=== PATIENT | male | born 1965 | race Native Hawaiian/Other Pacific Islander ===

== ENCOUNTER 2016-05-27 10:38 | Outpatient (CLI) | payer OTHER ==
[~2016-05-27 10:38] MED LIST: AMOX875T8 PO; ANTIPYRINE/BENZOCAIN OTIC; ASA LOW DOSE81 MG PO; BACLOFEN10 MG PO; BENADRYL25 M1 OR; BENZ100C8 PO; BENZONATATE200 MG PO; BINOSTO70 MG PO; CELLCEPT500 MG OR; CETI10TA PO; CIPRO500 MG PO; DIPH25CA90 PO; DOCU100C10 PO; FLUC200T PO; FLUTICASONE50 MCG; LATANOPROST0.005 % XX; LEVO500T PO; LIPITOR10 MG PO; MAG OXIDE400 M2 OR; MELOXICAM7.5 MG OR; MULTI-VIT PO; OMEPRAZOLE20 M1 PO; PRED10TA27 PO; PRED5TAB3 PO; PROGRAF0.5 MG OR; PROGRAF1 MG; TAMSULOSIN0.4 MG PO; TRAM50TA PO; VITAMIN C TR1000 MG PO; VITAMIN D400 UNIT OR; XALATAN0.005 % OPTH; XOPENEX1.25 MG/3 IN
[2016-05-27 12:15] LABS: PLATELET COUNT 244 K/uL (142-355); POTASSIUM 5.6 mmol/L (3.6-5.2); SODIUM 135 mmol/L (136-145)
[2016-06-24] MEDS ORDERED: TIZA4TAB5 PO (12:57)
[2016-06-24] MEDS ORDERED: TIMO0.5S26 OPTH (13:05)
[2016-06-24] MEDS ORDERED: ANTIPYRINE/BENZOCAIN OTIC (13:07)
== END 2016-05-27 22:58 | disposition home or self-care (01) ==
LOC: LABW 10:38
PROVIDERS: Internal Medicine
DX: R63.4 Abnormal weight loss (principal); R19.04 Left lower quadrant abdominal swelling, mass and lump
CPT/HCPCS: 36415; 80053; 81000; 84439; 84443; 85027; 85651; 86140

== ENCOUNTER 2016-06-06 11:41 | Outpatient (CLI) | payer OTHER ==
[2016-06-24] MEDS ORDERED: TIZA4TAB5 PO (12:57)
[2016-06-24] MEDS ORDERED: TIMO0.5S26 OPTH (13:05)
[2016-06-24] MEDS ORDERED: ANTIPYRINE/BENZOCAIN OTIC (13:07)
== END 2016-06-06 19:10 | disposition home or self-care (01) ==
LOC: LABW 11:41
DX: R63.4 Abnormal weight loss (principal); Z12.5 Encounter for screening for malignant neoplasm of prostate
CPT/HCPCS: 36415; 84154

== ENCOUNTER 2016-06-11 07:37 | Outpatient (CLI) | payer OTHER ==
[2016-06-24] MEDS ORDERED: TIZA4TAB5 PO (12:57)
[2016-06-24] MEDS ORDERED: TIMO0.5S26 OPTH (13:05)
[2016-06-24] MEDS ORDERED: ANTIPYRINE/BENZOCAIN OTIC (13:07)
== END 2016-06-11 20:02 | disposition home or self-care (01) ==
LOC: CT 07:37
DX: R19.04 Left lower quadrant abdominal swelling, mass and lump (principal)

== ENCOUNTER 2016-06-22 07:07 | Emergency (ER) | payer OTHER ==
[~2016-06-22] VITALS: Ht 170.2 cm; Wt 60.8 kg
[2016-06-22 07:38] LABS: PLATELET COUNT 224 K/uL (142-355)
[2016-06-22 08:12] LABS: POTASSIUM 4.4 mmol/L (3.6-5.2); SODIUM 138 mmol/L (136-145)
[2016-06-22 09:34] VITALS: BP 137/66; TEMP 98.1
[2016-06-24] MEDS ORDERED: TIZA4TAB5 PO (12:57)
[2016-06-24] MEDS ORDERED: TIMO0.5S26 OPTH (13:05)
[2016-06-24] MEDS ORDERED: ANTIPYRINE/BENZOCAIN OTIC (13:07)
== END 2016-06-22 09:35 | disposition home or self-care (01) ==
LOC: ED 07:07
DX: J32.8 Other chronic sinusitis (principal)
CPT/HCPCS: 36415; 80053; 85027; 99283

== ENCOUNTER 2016-06-24 10:16 | Inpatient (IN) | payer OTHER ==
[~2016-06-24] VITALS: Ht 170.2 cm; Wt 61.0 kg
[2016-06-24 11:38] VITALS: BP 131/69; TEMP 98.1; Ht 170.2 cm; Wt 61.0 kg
[2016-06-24] MEDS ORDERED: TIZA4TAB5 PO ×2 (12:57)
[2016-06-24] MEDS ORDERED: TIMO0.5S26 OPTH ×2 (13:05)
[2016-06-24] MEDS ORDERED: ANTIPYRINE/BENZOCAIN OTIC ×2 (13:07)
[2016-06-24 13:17] LABS: PLATELET COUNT 187 K/uL (142-355)
[2016-06-24 13:37] LABS: POTASSIUM 3.3 mmol/L (3.6-5.2); SODIUM 134 mmol/L (136-145)
[2016-06-24 16:00] VITALS: BP 123/54; TEMP 98.2
[2016-06-24 20:00] VITALS: BP 154/75; TEMP 98.1
[2016-06-25 00:28] VITALS: BP 162/74; TEMP 97.8
[2016-06-25 04:38] LABS: PLATELET COUNT 166 K/uL (142-355)
[2016-06-25 04:50] LABS: POTASSIUM 3.7 mmol/L (3.6-5.2); SODIUM 133 mmol/L (136-145)
[2016-06-25 05:54] VITALS: BP 134/70; TEMP 98.8
[2016-06-25 08:00] VITALS: BP 137/69; TEMP 98
[2016-06-25 12:00] VITALS: BP 132/61; TEMP 98.1
[2016-06-25 16:00] VITALS: BP 141/63; TEMP 98.5
[2016-06-25 20:00] VITALS: BP 158/67; TEMP 97.9
[2016-06-26] VITALS: BP 124/59; TEMP 97.8
[2016-06-26 04:00] VITALS: BP 141/64; TEMP 97.5
[2016-06-26 05:20] LABS: PLATELET COUNT 156 K/uL (142-355)
[2016-06-26 05:55] LABS: POTASSIUM 4.1 mmol/L (3.6-5.2); SODIUM 134 mmol/L (136-145)
[2016-06-26 08:00] VITALS: BP 138/64; TEMP 97.6
[2016-06-26 12:00] VITALS: BP 116/50; TEMP 97.8
[2016-06-26 16:00] VITALS: BP 112/61; TEMP 98
[2016-06-26 20:00] VITALS: BP 131/68; TEMP 97.9
[2016-06-27] VITALS: BP 105/51; TEMP 97.4
[2016-06-27 05:22] VITALS: BP 142/66; TEMP 98.1
[2016-06-27 06:02] LABS: SODIUM 135 mmol/L (136-145)
[2016-06-27 06:25] LABS: PLATELET COUNT 157 K/uL (142-355)
[2016-06-27 08:01] VITALS: BP 148/76; TEMP 97.4
[2016-06-27 12:27] VITALS: BP 146/69; TEMP 97.6
[2016-06-27 15:57] VITALS: BP 157/96; TEMP 97.6
[2016-06-27 20:00] VITALS: BP 138/81; TEMP 98.3
[2016-06-28 00:20] VITALS: BP 117/68; TEMP 97.8
[2016-06-28 04:00] VITALS: BP 139/73; TEMP 98.1
[2016-06-28 08:00] VITALS: BP 183/83; TEMP 98.7
[2016-06-28 12:00] VITALS: BP 142/76; TEMP 98.1
== END 2016-06-28 16:22 | disposition home or self-care (01) | DRG 202 ==
LOC: MED/SURG 10:16
PROVIDERS: Emergency Medicine; ADMIT Physician Assistant
DX: J20.9 Acute bronchitis, unspecified (principal); Z94.0 Kidney transplant status; Z94.83 Pancreas transplant status; R07.89 Other chest pain; J01.80 Other acute sinusitis; E11.319 Type 2 diabetes mellitus with unspecified diabetic retinopathy without macular edema; Z79.4 Long term (current) use of insulin; E11.42 Type 2 diabetes mellitus with diabetic polyneuropathy; K21.9 Gastro-esophageal reflux disease without esophagitis; B95.62 Methicillin resistant Staphylococcus aureus infection as the cause of diseases classified elsewhere; R05 Cough; J32.8 Other chronic sinusitis
CPT/HCPCS: 36415; 36600; 80053; 82805; 85027; 86644; 86645; 86663; 86664; 86665; 87070; 87077; 87101; 87185; 87186; 87205; 93005; 94640; 94664; 94760; 96365; 96366; 96367; 99283; J1956; J3490

== ENCOUNTER 2016-07-02 08:29 | Outpatient (CLI) | payer OTHER ==
[~2016-07-02 08:29] MED LIST changes: +TIMO0.5S26 OPTH; +TIZA4TAB5 PO
[2016-07-02 09:00] LABS: PLATELET COUNT 225 K/uL (142-355)
[2016-07-02 09:09] LABS: SODIUM 136 mmol/L (136-145)
== END 2016-07-02 18:58 | disposition home or self-care (01) ==
LOC: LABW 08:29
PROVIDERS: Internal Medicine Nephrology
DX: Z94.0 Kidney transplant status (principal); Z94.83 Pancreas transplant status; Z79.899 Other long term (current) drug therapy; Z51.81 Encounter for therapeutic drug level monitoring
CPT/HCPCS: 36415; 80053; 80197; 81000; 82150; 83036; 83690; 83735; 83970; 84100; 84550; 85027

== ENCOUNTER 2016-07-24 10:20 | Outpatient (CLI) | payer OTHER | END 2016-07-24 11:20 | disposition home or self-care (01) | LOC: LABW 10:20 | PROVIDERS: Internal Medicine Cardiovascular Disease | DX: E78.4 Other hyperlipidemia (principal); I25.119 Atherosclerotic heart disease of native coronary artery with unspecified angina pectoris | CPT/HCPCS: 36415; 80061; 80076 ==

== ENCOUNTER 2016-09-03 11:41 | Outpatient (CLI) | payer OTHER | END 2016-09-03 19:06 | disposition home or self-care (01) | LOC: RAD 11:41 | DX: M17.0 Bilateral primary osteoarthritis of knee (principal); M54.5 Low back pain; M62.838 Other muscle spasm ==

== ENCOUNTER 2016-10-08 11:18 | Outpatient (CLI) | payer OTHER ==
[2016-10-08 12:54] LABS: SODIUM 136 mmol/L (136-145)
== END 2016-10-08 12:30 | disposition home or self-care (01) ==
LOC: LABW 11:18
PROVIDERS: Internal Medicine
DX: I25.10 Atherosclerotic heart disease of native coronary artery without angina pectoris (principal)
CPT/HCPCS: 36415; 80048; 81000

== ENCOUNTER 2016-11-27 10:30 | Outpatient (CLI) | payer OTHER ==
[2016-11-27 11:03] LABS: PLATELET COUNT 208 K/uL (142-355)
[2016-11-27 11:33] LABS: POTASSIUM 4.7 mmol/L (3.6-5.2); SODIUM 142 mmol/L (136-145)
== END 2016-11-27 19:16 | disposition home or self-care (01) ==
LOC: LABW 10:30
PROVIDERS: Internal Medicine Nephrology
DX: Z94.0 Kidney transplant status (principal); I12.9 Hypertensive chronic kidney disease with stage 1 through stage 4 chronic kidney disease, or unspecified chronic kidney disease; I10 Essential (primary) hypertension; Z79.899 Other long term (current) drug therapy; Z51.81 Encounter for therapeutic drug level monitoring
CPT/HCPCS: 36415; 80053; 80197; 81000; 82306; 82570; 83036; 83735; 84100; 84155; 85027

== ENCOUNTER 2016-12-29 18:23 | Outpatient (CLI) | payer OTHER | END 2016-12-29 19:39 | disposition home or self-care (01) | LOC: RAD 18:23 | DX: J42 Unspecified chronic bronchitis (principal) ==

== ENCOUNTER 2017-03-09 08:07 | Outpatient (CLI) | payer OTHER ==
[2017-03-09 08:43] LABS: PLATELET COUNT 243 K/uL (142-355)
[2017-03-09 08:57] LABS: POTASSIUM 5.2 mmol/L (3.6-5.2)
== END 2017-03-09 19:00 | disposition home or self-care (01) ==
LOC: LABW 08:07
PROVIDERS: Internal Medicine Nephrology
DX: Z94.0 Kidney transplant status (principal); Z94.83 Pancreas transplant status; Z79.899 Other long term (current) drug therapy; Z51.81 Encounter for therapeutic drug level monitoring
CPT/HCPCS: 36415; 80053; 80061; 80197; 81000; 82150; 83036; 83690; 83735; 83970; 84100; 84550; 85027

== ENCOUNTER 2017-03-27 10:01 | Outpatient (CLI) | payer OTHER | END 2017-03-27 19:23 | disposition home or self-care (01) | LOC: LABW 10:01 | DX: Z94.0 Kidney transplant status (principal); Z94.83 Pancreas transplant status; Z79.899 Other long term (current) drug therapy; D80.1 Nonfamilial hypogammaglobulinemia; Z51.81 Encounter for therapeutic drug level monitoring | CPT/HCPCS: 36415; 82784; 82785 ==

== ENCOUNTER 2017-04-16 15:00 | Outpatient (CLI) | payer OTHER | END 2017-04-16 19:12 | disposition home or self-care (01) | LOC: RAD 15:00 | DX: M54.5 Low back pain (principal) ==

== ENCOUNTER 2017-04-17 10:50 | Outpatient (CLI) | payer OTHER ==
[2017-04-17 11:10] LABS: PLATELET COUNT 201 K/uL (142-355)
[2017-04-17 11:36] LABS: POTASSIUM 4.9 mmol/L (3.6-5.2); SODIUM 137 mmol/L (136-145)
== END 2017-04-17 19:19 | disposition home or self-care (01) ==
LOC: LAB 10:50
PROVIDERS: Internal Medicine
DX: R11.2 Nausea with vomiting, unspecified (principal); Z79.899 Other long term (current) drug therapy
CPT/HCPCS: 36415; 80053; 82150; 83690; 84443; 85027

== ENCOUNTER 2017-04-24 11:00 | Outpatient (CLI) | payer OTHER | END 2017-04-24 12:00 | disposition home or self-care (01) | LOC: US 11:00 | DX: H54.3 Unqualified visual loss, both eyes (principal) ==

== ENCOUNTER 2017-07-17 14:44 | Outpatient (CLI) | payer OTHER ==
[2017-07-17 16:31] LABS: PLATELET COUNT 191 K/uL (142-355)
[2017-07-17 16:51] LABS: POTASSIUM 4.6 mmol/L (3.6-5.2)
== END 2017-07-17 21:31 | disposition home or self-care (01) ==
LOC: LABW 14:44
PROVIDERS: Internal Medicine Nephrology
DX: I12.0 Hypertensive chronic kidney disease with stage 5 chronic kidney disease or end stage renal disease (principal); N18.5 Chronic kidney disease, stage 5; E55.9 Vitamin D deficiency, unspecified
CPT/HCPCS: 36415; 80048; 81000; 82306; 83735; 83970; 84100; 85027

== ENCOUNTER 2017-08-04 11:05 | Outpatient (CLI) | payer OTHER ==
[2017-08-04 12:21] LABS: PLATELET COUNT 252 K/uL (142-355)
[2017-08-04 12:33] LABS: POTASSIUM 4.9 mmol/L (3.6-5.2)
== END 2017-08-04 22:56 | disposition home or self-care (01) ==
LOC: LABW 11:05
PROVIDERS: Internal Medicine Nephrology
DX: E78.4 Other hyperlipidemia (principal); I25.119 Atherosclerotic heart disease of native coronary artery with unspecified angina pectoris; Z94.0 Kidney transplant status
CPT/HCPCS: 36415; 80048; 80061; 80076; 80197; 82306; 83735; 83970; 84100; 85027

== ENCOUNTER 2017-12-21 10:55 | Outpatient (CLI) | payer OTHER ==
[2017-12-21 11:14] LABS: PLATELET COUNT 210 K/uL (142-355)
== END 2017-12-21 21:14 | disposition home or self-care (01) ==
LOC: LABW 10:55
PROVIDERS: Physician Assistant
DX: R10.31 Right lower quadrant pain (principal)
CPT/HCPCS: 36415; 81000; 85027

== ENCOUNTER 2017-12-24 09:24 | Outpatient (CLI) | payer OTHER | END 2017-12-24 21:14 | disposition home or self-care (01) | LOC: RAD 09:24 | DX: R10.31 Right lower quadrant pain (principal); J40 Bronchitis, not specified as acute or chronic ==

== ENCOUNTER 2018-01-21 08:09 | Outpatient (CLI) | payer OTHER ==
[2018-01-21 09:03] LABS: PLATELET COUNT 182 K/uL (142-355)
[2018-01-21 09:24] LABS: POTASSIUM 5.2 mmol/L (3.6-5.2)
== END 2018-01-21 19:40 | disposition home or self-care (01) ==
LOC: LABW 08:09
PROVIDERS: Internal Medicine
DX: J18.1 Lobar pneumonia, unspecified organism (principal)
CPT/HCPCS: 36415; 80053; 81000; 85027; 85651

== ENCOUNTER 2018-03-09 10:37 | Outpatient (CLI) | payer OTHER ==
[2018-03-09 11:04] LABS: PLATELET COUNT 216 K/uL (142-355)
[2018-03-09 11:21] LABS: POTASSIUM 4.4 mmol/L (3.6-5.2)
== END 2018-03-09 21:21 | disposition home or self-care (01) ==
LOC: LABW 10:37
PROVIDERS: Internal Medicine Nephrology
DX: E55.9 Vitamin D deficiency, unspecified (principal); Z94.0 Kidney transplant status; Z94.83 Pancreas transplant status; Z79.899 Other long term (current) drug therapy
CPT/HCPCS: 36415; 80053; 80061; 80197; 81000; 82150; 82306; 83036; 83690; 83735; 83970; 84100; 84550; 85027

== ENCOUNTER 2018-03-12 21:19 | Emergency (ER) | payer OTHER ==
[~2018-03-12] VITALS: Ht 170.2 cm; Wt 60.8 kg
[2018-03-12 21:31] VITALS: TEMP 98
[2018-03-12 23:45] VITALS: BP 150/68
== END 2018-03-12 23:55 | disposition home or self-care (01) ==
LOC: ED 21:19
DX: S42.191A Fracture of other part of scapula, right shoulder, initial encounter for closed fracture (principal); W18.39XA Other fall on same level, initial encounter; Y92.512 Supermarket, store or market as the place of occurrence of the external cause
CPT/HCPCS: 96372; 99282; J2175; J2405

== ENCOUNTER 2018-05-17 09:29 | Outpatient (CLI) | payer OTHER | END 2018-05-17 20:22 | disposition home or self-care (01) | LOC: MRI 09:29 | DX: S42.111D Displaced fracture of body of scapula, right shoulder, subsequent encounter for fracture with routine healing (principal); S46.011A Strain of muscle(s) and tendon(s) of the rotator cuff of right shoulder, initial encounter; W01.0XXA Fall on same level from slipping, tripping and stumbling without subsequent striking against object, initial encounter ==

== ENCOUNTER 2018-06-16 03:56 | Emergency (ER) | payer OTHER ==
[~2018-06-16] VITALS: Ht 170.2 cm; Wt 63.5 kg
[2018-06-16] MEDS ORDERED: ISOS30TA17 PO (04:18)
[2018-06-16] MEDS ORDERED: RANO500T PO (04:18)
[2018-06-16] MEDS ORDERED: PRAS10TA PO (04:18)
[2018-06-16] MEDS ORDERED: NITR0.4S2 SL (04:19)
[2018-06-16] MEDS ORDERED: FLUC200T PO (04:19)
[2018-06-16] MEDS ORDERED: ROBAXIN500 MG PO (04:20)
[2018-06-16] MEDS ORDERED: [UNRECOGNIZED DRUG - OTHER] INH (04:20)
[2018-06-16] MEDS ORDERED: ZOFRAN8 MG PO (04:21)
[2018-06-16] MEDS ORDERED: HYDROCODONE BIT1 TA1 PO (04:21)
[2018-06-16 05:10] LABS: PLATELET COUNT 187 K/uL (142-355)
[2018-06-16 05:29] LABS: POTASSIUM 4.2 mmol/L (3.6-5.2); SODIUM 141 mmol/L (136-145)
[2018-06-16 06:15] VITALS: BP 134/61; TEMP 98.3
== END 2018-06-16 06:27 | disposition home or self-care (01) ==
LOC: ED 03:56
PROVIDERS: Internal Medicine
DX: A08.4 Viral intestinal infection, unspecified (principal); R51 Headache; M94.0 Chondrocostal junction syndrome [Tietze]
CPT/HCPCS: 36415; 80053; 84484; 85027; 87502; 87651; 93005; 96374; 96375; 99284; J1170; J2405

== ENCOUNTER 2018-08-05 13:56 | Observation (INO) | payer OTHER ==
[~2018-08-05] VITALS: Ht 170.2 cm; Wt 69.9 kg
[~2018-08-05 13:56] MED LIST changes: +HYDROCODONE BIT1 TA1 PO; +ISOS30TA17 PO; +NITR0.4S2 SL; +PRAS10TA PO; +RANO500T PO; +ROBAXIN500 MG PO; +ZOFRAN8 MG PO; +[UNRECOGNIZED DRUG - OTHER] INH
[2018-08-05 14:15] VITALS: BP 141/74; TEMP 97.9
[2018-08-05 15:30] VITALS: BP 136/62
[2018-08-05 15:36] LABS: PLATELET COUNT 149 K/uL (142-355)
[2018-08-05 15:48] LABS: POTASSIUM 4.6 mmol/L (3.6-5.2)
[2018-08-05 16:45] VITALS: BP 136/64
[2018-08-05 17:30] VITALS: BP 124/61
[2018-08-05 18:30] VITALS: BP 150/60; TEMP 98.5
[2018-08-05 23:18] VITALS: BP 135/53; TEMP 99; Ht 170.2 cm; Wt 69.9 kg
[2018-08-06 03:54] VITALS: BP 17/53; TEMP 98.1
[2018-08-06 05:53] LABS: PLATELET COUNT 136 K/uL (142-355)
[2018-08-06 06:02] LABS: POTASSIUM 4.4 mmol/L (3.6-5.2)
[2018-08-06 08:00] VITALS: BP 111/43; TEMP 98
[2018-08-06 12:00] VITALS: BP 117/61; TEMP 98.1
[2018-08-06 16:00] VITALS: BP 108/48; TEMP 97.8
[2018-08-06 20:00] VITALS: BP 106/56; TEMP 98.3
[2018-08-07 00:01] VITALS: BP 133/61; TEMP 98.1
[2018-08-07 04:00] VITALS: BP 144/61; TEMP 97.8
[2018-08-07 05:57] LABS: PLATELET COUNT 120 K/uL (142-355)
[2018-08-07 06:09] LABS: POTASSIUM 3.8 mmol/L (3.6-5.2)
[2018-08-07 08:00] VITALS: BP 158/66; TEMP 98.5
== END 2018-08-07 10:45 | disposition home or self-care (01) ==
LOC: ED 13:56 → MED/SURG 18:15
PROVIDERS: Internal Medicine; ADMIT Emergency Medicine
DX: K52.89 Other specified noninfective gastroenteritis and colitis (principal); R11.2 Nausea with vomiting, unspecified; E86.0 Dehydration; E10.9 Type 1 diabetes mellitus without complications; Z79.4 Long term (current) use of insulin; Z94.0 Kidney transplant status; Z94.83 Pancreas transplant status; I25.10 Atherosclerotic heart disease of native coronary artery without angina pectoris; M53.3 Sacrococcygeal disorders, not elsewhere classified; S42.294A Other nondisplaced fracture of upper end of right humerus, initial encounter for closed fracture
CPT/HCPCS: 36415; 80048; 80053; 81000; 82150; 83690; 83735; 85027; 87015; 87045; 87502; 87651; 87899; 96360; 96361; 96365; 96374; 96375; 99220; 99284; G0378; J2405; J3475; J3490

== ENCOUNTER 2018-09-25 21:03 | Emergency (ER) | payer OTHER ==
[~2018-09-25] VITALS: Ht 170.2 cm; Wt 64.9 kg
[2018-09-25 23:07] VITALS: BP 161/63; TEMP 97.9
== END 2018-09-25 23:09 | disposition home or self-care (01) ==
LOC: ED 21:03
DX: M72.2 Plantar fascial fibromatosis (principal)
CPT/HCPCS: 99282; J1020

== ENCOUNTER 2018-10-05 09:34 | Emergency (ER) | payer OTHER ==
[~2018-10-05] VITALS: Ht 170.2 cm; Wt 65.8 kg
[2018-10-05 09:42] VITALS: TEMP 98.5
[2018-10-05 10:55] LABS: PLATELET COUNT 220 K/uL (142-355)
[2018-10-05 11:04] LABS: POTASSIUM 3.7 mmol/L (3.6-5.2)
[2018-10-05 13:18] VITALS: BP 116/68
== END 2018-10-05 13:18 | disposition home or self-care (01) ==
LOC: ED 09:34
PROVIDERS: Family Medicine
DX: K52.89 Other specified noninfective gastroenteritis and colitis (principal); E86.0 Dehydration
CPT/HCPCS: 80053; 81000; 82150; 83690; 85027; 96360; 96375; 99284; J2405; J3490

== ENCOUNTER 2018-11-02 10:58 | Outpatient (CLI) | payer OTHER ==
[2018-11-02 11:22] LABS: PLATELET COUNT 190 K/uL (142-355)
== END 2018-11-02 19:46 | disposition home or self-care (01) ==
LOC: LABW 10:58
PROVIDERS: Physician Assistant
DX: R60.1 Generalized edema (principal); L03.818 Cellulitis of other sites
CPT/HCPCS: 36415; 85027

== ENCOUNTER 2018-11-17 09:12 | Outpatient (CLI) | payer OTHER ==
[2018-11-17 09:31] LABS: PLATELET COUNT 242 K/uL (142-355)
[2018-11-17 10:02] LABS: POTASSIUM 5.3 mmol/L (3.6-5.2)
== END 2018-11-17 22:34 | disposition home or self-care (01) ==
LOC: LABW 09:12
PROVIDERS: Internal Medicine
DX: L03.116 Cellulitis of left lower limb (principal); E10.9 Type 1 diabetes mellitus without complications; Z79.899 Other long term (current) drug therapy
CPT/HCPCS: 36415; 80053; 80061; 83036; 84439; 84443; 85027

== ENCOUNTER 2018-12-21 09:58 | Outpatient (CLI) | payer OTHER | END 2018-12-21 20:58 | disposition home or self-care (01) | LOC: RAD 09:58 | DX: J01.80 Other acute sinusitis (principal) ==

== ENCOUNTER 2018-12-29 11:22 | Outpatient (CLI) | payer OTHER | END 2018-12-29 23:59 | LOC: LABW 11:22 | DX: R05 Cough (principal) | CPT/HCPCS: 87070; 87077; 87185; 87186; 87205 ==

== ENCOUNTER 2019-01-09 07:46 | Inpatient (IN) | payer OTHER ==
[~2019-01-09] VITALS: Ht 170.2 cm; Wt 67.2 kg
[2019-01-09] VITALS (8 sets, daily range): BP systolic 119–179; BP diastolic 49–611; TEMP 97.6–99.3; Ht 170.2 cm; Wt 67.2 kg
[2019-01-09 08:48] LABS: PLATELET COUNT 166 K/uL (142-355)
[2019-01-09 09:00] LABS: PARTIAL THROMBOPLASTIN TIME 24.1 SECONDS (24.5-33.6)
[2019-01-09 09:04] LABS: POTASSIUM 4.3 mmol/L (3.6-5.2)
[2019-01-09] MEDS ORDERED: CETIRIZINE10 MG PO (16:10)
[2019-01-09] MEDS ORDERED: DOCU SOFT100 MG PO (16:11)
[2019-01-09] MEDS ORDERED: ARNUITY EL50 MCG/ACT NAS (16:12)
[2019-01-09] MEDS ORDERED: LIPITOR20 MG PO (16:13)
[2019-01-10 01:00] VITALS: BP 162/70; TEMP 98.7
[2019-01-10 03:54] VITALS: BP 124/54; TEMP 98.3
[2019-01-10 05:45] LABS: PLATELET COUNT 145 K/uL (142-355)
[2019-01-10 06:25] LABS: POTASSIUM 4.3 mmol/L (3.6-5.2)
[2019-01-10 08:19] VITALS: BP 126/54; TEMP 98.1
[2019-01-10 12:08] VITALS: BP 142/58; TEMP 98
[2019-01-10 16:01] VITALS: BP 130/55; TEMP 98
[2019-01-10 20:00] VITALS: BP 153/73; TEMP 98.2
[2019-01-11] VITALS: BP 147/56; TEMP 98.7
[2019-01-11 04:00] VITALS: BP 172/52; TEMP 98.6
[2019-01-11 05:28] LABS: PLATELET COUNT 153 K/uL (142-355)
[2019-01-11 05:50] LABS: POTASSIUM 4.1 mmol/L (3.6-5.2)
[2019-01-11 08:00] VITALS: BP 160/66; TEMP 98.1
[2019-01-11 12:00] VITALS: BP 135/58; TEMP 97.7
[2019-01-11 16:00] VITALS: BP 107/50; TEMP 98.2
[2019-01-11 20:00] VITALS: BP 137/54; TEMP 97.8
[2019-01-12] VITALS: BP 145/64; TEMP 98.8
[2019-01-12 04:00] VITALS: BP 156/62; TEMP 97.9
[2019-01-12 05:21] LABS: PLATELET COUNT 163 K/uL (142-355)
[2019-01-12 05:57] LABS: POTASSIUM 3.9 mmol/L (3.6-5.2)
[2019-01-12 08:00] VITALS: BP 149/58; TEMP 97
[2019-01-12 12:00] VITALS: BP 136/70; TEMP 98.7
[2019-01-12 16:00] VITALS: BP 84/44; TEMP 98.2
[2019-01-12 20:00] VITALS: BP 133/61; TEMP 98.3
[2019-01-13] VITALS: BP 121/55; TEMP 98.6
[2019-01-13 04:00] VITALS: BP 175/67; TEMP 98.6
[2019-01-13 05:14] LABS: PLATELET COUNT 157 K/uL (142-355)
[2019-01-13 05:31] LABS: POTASSIUM 3.8 mmol/L (3.6-5.2)
[2019-01-13 08:00] VITALS: BP 161/65; TEMP 98.9
[2019-01-13 12:00] VITALS: BP 145/69; TEMP 98.1
[2019-01-13 16:00] VITALS: BP 130/52; TEMP 98.3
[2019-01-13 20:00] VITALS: BP 147/63; TEMP 98.5
[2019-01-14] VITALS: BP 153/65; TEMP 98.1
[2019-01-14 04:00] VITALS: BP 139/67; TEMP 98.4
[2019-01-14 04:25] LABS: PLATELET COUNT 176 K/uL (142-355)
[2019-01-14 04:40] LABS: POTASSIUM 3.6 mmol/L (3.6-5.2)
[2019-01-14 08:00] VITALS: BP 174/74; TEMP 98.3
== END 2019-01-14 11:40 | disposition home or self-care (01) | DRG 178 ==
LOC: ED 07:46 → MED/SURG 13:00
PROVIDERS: Family Medicine; Internal Medicine; ADMIT Hospitalist
DX: J15.212 Pneumonia due to Methicillin resistant Staphylococcus aureus (principal); Z94.0 Kidney transplant status; Z94.83 Pancreas transplant status; J20.9 Acute bronchitis, unspecified; J01.20 Acute ethmoidal sinusitis, unspecified; J01.00 Acute maxillary sinusitis, unspecified
CPT/HCPCS: 36415; 80053; 80202; 83605; 85027; 85610; 85730; 86615; 87070; 87077; 87101; 87116; 87185; 87186; 87205; 87206; 87502; 87651; 94640; 94664; 94668; 94760; 96360; 96361; 96365; 96366; 96367; 96368; 96372; 96375; 99284; J1650; J2405; J2543; J3370

== ENCOUNTER 2019-01-31 07:50 | Outpatient (CLI) | payer OTHER ==
[~2019-01-31 07:50] MED LIST changes: +ARNUITY EL50 MCG/ACT NAS; +CETIRIZINE10 MG PO; +DOCU SOFT100 MG PO; +LIPITOR20 MG PO
== END 2019-01-31 23:14 | disposition home or self-care (01) ==
LOC: LABW 07:50
PROVIDERS: Internal Medicine Cardiovascular Disease
DX: E78.00 Pure hypercholesterolemia, unspecified (principal)
CPT/HCPCS: 36415; 80061; 80076

== ENCOUNTER 2019-02-09 13:45 | Outpatient (CLI) | payer OTHER | END 2019-02-09 23:40 | disposition home or self-care (01) | LOC: RAD 13:45 | DX: R09.1 Pleurisy (principal) ==

== ENCOUNTER 2019-02-16 15:35 | Outpatient (CLI) | payer OTHER | END 2019-02-16 23:03 | disposition home or self-care (01) | LOC: RAD 15:35 | DX: R09.1 Pleurisy (principal) ==

== ENCOUNTER 2019-02-18 09:23 | Outpatient (CLI) | payer OTHER ==
[2019-02-18 09:57] LABS: PLATELET COUNT 192 K/uL (142-355)
[2019-02-18 11:18] LABS: POTASSIUM 4.6 mmol/L (3.6-5.2)
== END 2019-02-18 19:52 | disposition home or self-care (01) ==
LOC: LABW 09:23
PROVIDERS: Internal Medicine Nephrology
DX: Z94.0 Kidney transplant status (principal); Z79.899 Other long term (current) drug therapy
CPT/HCPCS: 36415; 80053; 80197; 85027

== ENCOUNTER 2019-03-04 10:27 | Outpatient (CLI) | payer OTHER ==
[2019-03-04 11:20] LABS: PLATELET COUNT 197 K/uL (142-355)
[2019-03-04 11:34] LABS: POTASSIUM 3.9 mmol/L (3.6-5.2)
== END 2019-03-04 21:56 | disposition home or self-care (01) ==
LOC: LABW 10:27
PROVIDERS: Internal Medicine Nephrology
DX: Z00.00 Encounter for general adult medical examination without abnormal findings (principal); Z94.0 Kidney transplant status; Z94.83 Pancreas transplant status; Z79.899 Other long term (current) drug therapy; N25.89 Other disorders resulting from impaired renal tubular function; E11.9 Type 2 diabetes mellitus without complications; Z12.5 Encounter for screening for malignant neoplasm of prostate; N40.0 Benign prostatic hyperplasia without lower urinary tract symptoms
CPT/HCPCS: 36415; 80053; 80061; 80197; 81000; 82150; 82306; 83036; 83690; 83970; 84153; 84439; 84443; 85027

== ENCOUNTER 2019-03-28 16:53 | Emergency (ER) | payer OTHER ==
[~2019-03-28] VITALS: Ht 170.2 cm; Wt 67.1 kg
[2019-03-28 19:07] LABS: PLATELET COUNT 190 K/uL (142-355)
[2019-03-28 19:18] LABS: POTASSIUM 4.9 mmol/L (3.6-5.2)
[2019-03-28 19:55] VITALS: BP 142/67; TEMP 98.2
== END 2019-03-28 19:55 | disposition home or self-care (01) ==
LOC: ED 16:53
PROVIDERS: Emergency Medicine
DX: J01.80 Other acute sinusitis (principal)
CPT/HCPCS: 36415; 80053; 85027; 87502; 87651; 96360; 99284

== ENCOUNTER 2019-07-12 07:44 | Outpatient (CLI) | payer OTHER ==
[2019-07-12 08:31] LABS: POTASSIUM 3.9 mmol/L (3.6-5.2)
[2019-07-12 08:41] LABS: PLATELET COUNT 198 K/uL (142-355)
== END 2019-07-12 19:33 | disposition home or self-care (01) ==
LOC: LABW 07:44
PROVIDERS: Internal Medicine Nephrology
DX: I12.9 Hypertensive chronic kidney disease with stage 1 through stage 4 chronic kidney disease, or unspecified chronic kidney disease (principal); N18.2 Chronic kidney disease, stage 2 (mild); E55.9 Vitamin D deficiency, unspecified; Z94.0 Kidney transplant status; Z79.899 Other long term (current) drug therapy; Z94.83 Pancreas transplant status
CPT/HCPCS: 36415; 80053; 80061; 80197; 81000; 82150; 82306; 83036; 83690; 83735; 83970; 84100; 85027

== ENCOUNTER 2019-07-22 13:08 | Outpatient (CLI) | payer OTHER | END 2019-07-22 20:14 | disposition home or self-care (01) | LOC: RAD 13:08 | DX: M17.0 Bilateral primary osteoarthritis of knee (principal); M47.814 Spondylosis without myelopathy or radiculopathy, thoracic region; M47.816 Spondylosis without myelopathy or radiculopathy, lumbar region; Z79.899 Other long term (current) drug therapy ==

== ENCOUNTER 2019-09-07 14:39 | Outpatient (CLI) | payer OTHER | END 2019-09-07 21:38 | disposition home or self-care (01) | LOC: RAD 14:39 | DX: M85.89 Other specified disorders of bone density and structure, multiple sites (principal); J32.0 Chronic maxillary sinusitis ==

== ENCOUNTER 2020-01-24 08:22 | Outpatient (CLI) | payer OTHER | END 2020-01-24 19:03 | disposition home or self-care (01) | LOC: LABW 08:22 | DX: R33.8 Other retention of urine (principal) | CPT/HCPCS: 36415; 84153 ==

== ENCOUNTER 2020-01-27 09:55 | Outpatient (CLI) | payer OTHER ==
[2020-01-27 10:30] LABS: PLATELET COUNT 212 K/uL (142-355)
[2020-01-27 10:50] LABS: POTASSIUM 4.8 mmol/L (3.6-5.2)
== END 2020-01-27 23:28 | disposition home or self-care (01) ==
LOC: LABW 09:55
PROVIDERS: Internal Medicine
DX: Z00.00 Encounter for general adult medical examination without abnormal findings (principal); Z94.0 Kidney transplant status; Z94.83 Pancreas transplant status; Z79.899 Other long term (current) drug therapy; E11.9 Type 2 diabetes mellitus without complications
CPT/HCPCS: 36415; 80053; 80061; 81000; 83036; 84439; 84443; 85027

== ENCOUNTER 2020-03-05 09:27 | Outpatient (CLI) | payer OTHER ==
[2020-03-05 10:25] LABS: PLATELET COUNT 250 K/uL (142-355)
[2020-03-05 10:33] LABS: POTASSIUM 5.2 mmol/L (3.6-5.2)
== END 2020-03-05 20:27 | disposition home or self-care (01) ==
LOC: LABW 09:27
PROVIDERS: Internal Medicine Nephrology
DX: E78.49 Other hyperlipidemia (principal); I25.119 Atherosclerotic heart disease of native coronary artery with unspecified angina pectoris; Z09 Encounter for follow-up examination after completed treatment for conditions other than malignant neoplasm; I12.9 Hypertensive chronic kidney disease with stage 1 through stage 4 chronic kidney disease, or unspecified chronic kidney disease; N18.2 Chronic kidney disease, stage 2 (mild); Z94.0 Kidney transplant status; Z94.83 Pancreas transplant status
CPT/HCPCS: 36415; 80053; 80061; 80197; 81000; 82248; 83735; 84100; 85027

== ENCOUNTER 2020-03-13 07:54 | Outpatient (CLI) | payer OTHER ==
[2020-03-13 08:14] LABS: POTASSIUM 4.1 mmol/L (3.6-5.2)
== END 2020-03-13 23:28 | disposition home or self-care (01) ==
LOC: LABW 07:54
PROVIDERS: Internal Medicine Nephrology
DX: N18.2 Chronic kidney disease, stage 2 (mild) (principal)
CPT/HCPCS: 36415; 80048

== ENCOUNTER 2020-03-27 08:31 | Outpatient (CLI) | payer OTHER ==
[2020-03-27 09:14] LABS: POTASSIUM 5.1 mmol/L (3.6-5.2)
== END 2020-03-27 22:32 | disposition home or self-care (01) ==
LOC: LABW 08:31
PROVIDERS: ATTEND Internal Medicine
DX: E87.5 Hyperkalemia (principal)
CPT/HCPCS: 36415; 80048

== ENCOUNTER 2020-05-30 11:19 | Outpatient (CLI) | payer OTHER ==
[2020-05-30 12:00] LABS: PLATELET COUNT 194 K/uL (142-355)
[2020-05-30 12:09] LABS: POTASSIUM 4.3 mmol/L (3.6-5.2)
== END 2020-05-30 23:58 | disposition home or self-care (01) ==
LOC: LABW 11:19
PROVIDERS: ATTEND Internal Medicine Nephrology
DX: I12.9 Hypertensive chronic kidney disease with stage 1 through stage 4 chronic kidney disease, or unspecified chronic kidney disease (principal); N18.2 Chronic kidney disease, stage 2 (mild); E87.5 Hyperkalemia; Z94.0 Kidney transplant status
CPT/HCPCS: 36415; 80053; 80197; 81000; 83735; 84100; 85027

== ENCOUNTER 2020-06-27 07:43 | Outpatient (CLI) | payer OTHER ==
[2020-06-27 08:31] LABS: PLATELET COUNT 225 K/uL (142-355)
[2020-06-27 09:00] LABS: POTASSIUM 5.2 mmol/L (3.6-5.2)
== END 2020-06-27 20:49 | disposition home or self-care (01) ==
LOC: LABW 07:43
PROVIDERS: ATTEND Internal Medicine Nephrology
DX: Z94.0 Kidney transplant status (principal); Z79.899 Other long term (current) drug therapy
CPT/HCPCS: 36415; 80053; 81000; 82043; 82570; 83036; 83735; 84100; 84155; 84550; 85027; 87086; 87088

== ENCOUNTER 2020-08-20 09:00 | Emergency (ER) | payer OTHER ==
[~2020-08-20] VITALS: Ht 170.2 cm; Wt 72.6 kg
[2020-08-20 09:50] LABS: PLATELET COUNT 196 K/uL (142-355)
[2020-08-20 19:00] VITALS: TEMP 99.5
[2020-08-20 19:40] VITALS: BP 135/58
== END 2020-08-20 19:51 | disposition short-term general hospital (02) ==
LOC: ED 09:00
PROVIDERS: Emergency Medicine Emergency Medical Services
DX: J18.9 Pneumonia, unspecified organism (principal); R77.8 Other specified abnormalities of plasma proteins; Z20.822 Contact with and (suspected) exposure to COVID-19; R06.02 Shortness of breath; R10.84 Generalized abdominal pain
CPT/HCPCS: 36415; 80053; 81000; 82150; 83605; 83690; 83735; 83880; 84484; 85027; 85379; 85610; 85730; 87040; 87502; 87635; 93005; 96360; 96361; 96365; 96375; 99285; J0456; J0696; J1170; J1644; J2405; J3010; J3490; U0003

== ENCOUNTER 2020-11-27 07:12 | Outpatient (CLI) | payer OTHER ==
[2020-11-27 07:33] LABS: PLATELET COUNT 238 K/uL (142-355)
[2020-11-27 08:04] LABS: POTASSIUM 4.7 mmol/L (3.6-5.2)
== END 2020-11-27 21:32 | disposition home or self-care (01) ==
LOC: LABW 07:12
PROVIDERS: ATTEND Internal Medicine Nephrology
DX: N18.2 Chronic kidney disease, stage 2 (mild) (principal); I12.9 Hypertensive chronic kidney disease with stage 1 through stage 4 chronic kidney disease, or unspecified chronic kidney disease; Z94.0 Kidney transplant status
CPT/HCPCS: 36415; 80048; 81000; 83735; 84100; 85027

== ENCOUNTER 2020-12-12 08:52 | Outpatient (CLI) | payer OTHER | END 2020-12-12 14:52 | disposition home or self-care (01) | LOC: LAB 08:52 | PROVIDERS: ATTEND Internal Medicine | DX: Z20.822 Contact with and (suspected) exposure to COVID-19 (principal) | CPT/HCPCS: 87635; G2023; U0003 ==

== ENCOUNTER 2021-01-01 15:25 | Emergency (ER) | payer OTHER ==
[~2021-01-01] VITALS: Ht 170.2 cm; Wt 72.6 kg
[2021-01-01 15:48] VITALS: TEMP 97.2
[2021-01-01 17:13] VITALS: BP 112/65
== END 2021-01-01 17:15 | disposition home or self-care (01) ==
LOC: ED 15:25
DX: S50.02XA Contusion of left elbow, initial encounter (principal); S80.02XA Contusion of left knee, initial encounter; S90.02XA Contusion of left ankle, initial encounter; S50.312A Abrasion of left elbow, initial encounter; W01.0XXA Fall on same level from slipping, tripping and stumbling without subsequent striking against object, initial encounter; Y92.480 Sidewalk as the place of occurrence of the external cause
CPT/HCPCS: 99283

== ENCOUNTER 2021-02-13 09:55 | Outpatient (CLI) | payer OTHER | END 2021-02-13 19:26 | disposition home or self-care (01) | LOC: RAD 09:55 | PROVIDERS: ATTEND Internal Medicine Sleep Medicine | DX: R91.1 Solitary pulmonary nodule (principal) ==

== ENCOUNTER 2021-04-07 12:57 | Inpatient (IN) | payer OTHER ==
[~2021-04-07] VITALS: Ht 170.2 cm; Wt 73.5 kg
[2021-04-07] VITALS (7 sets, daily range): BP systolic 140–166; BP diastolic 46–79; TEMP 98.1–98.5; Ht 170.2 cm; Wt 73.5 kg
[~2021-04-07 12:57] MED LIST changes: -CELLCEPT500 MG OR; +CELLCEPT500 MG PO; -ISOS30TA17 PO; +ISOS60TA6 PO
[2021-04-07 15:36] LABS: PLATELET COUNT 247 K/uL (142-355)
[2021-04-07 15:50] LABS: PARTIAL THROMBOPLASTIN TIME 28.2 SECONDS (24.5-33.6)
[2021-04-07] MEDS ORDERED: LISI10TA11 PO (21:57)
[2021-04-07] MEDS ORDERED: MONTELUKAST SOD10 MG PO (21:57)
[2021-04-07] MEDS ORDERED: AZEL137S NAS (21:59)
[2021-04-07] MEDS ORDERED: SYSTANE OPTH (22:00)
[2021-04-07] MEDS ORDERED: BRIMONIDINE0.2 % OPTH (22:01)
[2021-04-07] MEDS ORDERED: VITAMIN C 500 M1 TAB PO (22:02)
[2021-04-07] MEDS ORDERED: ZOFRAN8 MG PO (22:04)
[2021-04-07] MEDS ORDERED: VITAMIN D31000 UNIT PO (22:06)
[2021-04-08] VITALS: BP 141/46; TEMP 98.3
[2021-04-08 04:00] VITALS: BP 155/70; TEMP 98.2
[2021-04-08 05:38] LABS: PLATELET COUNT 233 K/uL (142-355)
[2021-04-08 05:42] LABS: POTASSIUM 3.7 mmol/L (3.6-5.2)
[2021-04-08 12:00] VITALS: BP 106/60; TEMP 98.1
[2021-04-08 16:00] VITALS: BP 138/60; TEMP 97.6
[2021-04-08 20:00] VITALS: BP 141/47; TEMP 98.5
[2021-04-09] VITALS (7 sets, daily range): BP systolic 120–197; BP diastolic 36–74; TEMP 97.7–98.6
[2021-04-09 05:56] LABS: PLATELET COUNT 222 K/uL (142-355)
[2021-04-09 06:08] LABS: POTASSIUM 3.6 mmol/L (3.6-5.2)
[2021-04-10 04:05] VITALS: BP 155/63; TEMP 98.5
[2021-04-10 04:55] LABS: PLATELET COUNT 224 K/uL (142-355)
[2021-04-10 05:29] LABS: POTASSIUM 4.3 mmol/L (3.6-5.2)
[2021-04-10 08:00] VITALS: BP 147/66; TEMP 97.4
== END 2021-04-10 11:40 | disposition home or self-care (01) | DRG 194 ==
LOC: ED 12:57 → MED/SURG 17:40
PROVIDERS: Hospitalist; ADMIT Internal Medicine Endocrinology, Diabetes & Metabolism; ATTEND Internal Medicine Endocrinology, Diabetes & Metabolism
DX: J18.8 Other pneumonia, unspecified organism (principal); Z94.83 Pancreas transplant status; Z94.0 Kidney transplant status; D84.9 Immunodeficiency, unspecified; E78.49 Other hyperlipidemia; I10 Essential (primary) hypertension; N40.0 Benign prostatic hyperplasia without lower urinary tract symptoms; I25.10 Atherosclerotic heart disease of native coronary artery without angina pectoris; H40.89 Other specified glaucoma; Z92.25 Personal history of immunosuppression therapy; E11.9 Type 2 diabetes mellitus without complications
CPT/HCPCS: 36415; 36600; 80048; 80053; 82550; 82805; 83605; 83880; 84484; 85027; 85610; 85730; 87040; 87070; 87077; 87185; 87186; 87205; 87635; 93005; 94640; 94664; 94760; 96365; 99284; J0456; J0696; J1650; J2405; J3490; U0003

== ENCOUNTER 2021-04-25 11:32 | Outpatient (CLI) | payer OTHER ==
[~2021-04-25 11:32] MED LIST changes: +AZEL137S NAS; +BRIMONIDINE0.2 % OPTH; +LISI10TA11 PO; +MONTELUKAST SOD10 MG PO; +SYSTANE OPTH; +VITAMIN C 500 M1 TAB PO; +VITAMIN D31000 UNIT PO
== END 2021-04-25 19:26 | disposition home or self-care (01) ==
LOC: RAD 11:32
PROVIDERS: ATTEND Internal Medicine
DX: R05.3 Chronic cough (principal)

== ENCOUNTER 2021-05-15 09:16 | Outpatient (CLI) | payer OTHER | END 2021-05-15 19:57 | disposition home or self-care (01) | LOC: LAB 09:16 | PROVIDERS: ATTEND Internal Medicine | DX: Z20.822 Contact with and (suspected) exposure to COVID-19 (principal) | CPT/HCPCS: 87635; G2023; U0003 ==

== ENCOUNTER 2021-05-23 11:31 | Outpatient (CLI) | payer OTHER | END 2021-05-23 19:11 | disposition home or self-care (01) | LOC: LAB 11:31 | PROVIDERS: ATTEND Internal Medicine | DX: R05.9 Cough, unspecified (principal); R50.9 Fever, unspecified; R05.3 Chronic cough | CPT/HCPCS: 87635; G2023; U0003 ==

== ENCOUNTER 2021-05-24 08:06 | Outpatient (CLI) | payer OTHER | END 2021-05-24 20:33 | disposition home or self-care (01) | LOC: LAB 08:06 | PROVIDERS: ATTEND Internal Medicine | DX: R05.3 Chronic cough (principal) | CPT/HCPCS: 87798 ==

== ENCOUNTER 2021-05-30 11:24 | Outpatient (CLI) | payer OTHER | END 2021-05-30 19:10 | disposition home or self-care (01) | LOC: CT 11:24 | PROVIDERS: ATTEND Internal Medicine | DX: R05.3 Chronic cough (principal) ==

== ENCOUNTER 2021-06-06 09:22 | Outpatient (CLI) | payer OTHER | END 2021-06-06 20:45 | disposition home or self-care (01) | LOC: LABW 09:22 | PROVIDERS: ATTEND Internal Medicine Cardiovascular Disease | DX: E78.00 Pure hypercholesterolemia, unspecified (principal) | CPT/HCPCS: 36415; 80061; 80076 ==

== ENCOUNTER 2021-06-25 08:15 | Outpatient (CLI) | payer OTHER ==
[2021-06-25 08:39] LABS: PLATELET COUNT 206 K/uL (142-355)
[2021-06-25 08:56] LABS: POTASSIUM 4.3 mmol/L (3.6-5.2)
== END 2021-06-25 18:50 | disposition home or self-care (01) ==
LOC: LABW 08:15
PROVIDERS: ATTEND Internal Medicine Nephrology
DX: I12.9 Hypertensive chronic kidney disease with stage 1 through stage 4 chronic kidney disease, or unspecified chronic kidney disease (principal); N18.2 Chronic kidney disease, stage 2 (mild)
CPT/HCPCS: 36415; 80048; 81000; 82306; 83735; 83970; 84100; 85027

== ENCOUNTER 2021-08-02 07:46 | Outpatient (CLI) | payer OTHER ==
[2021-08-02 08:23] LABS: POTASSIUM 4.5 mmol/L (3.6-5.2)
== END 2021-08-02 19:48 | disposition home or self-care (01) ==
LOC: LABW 07:46
PROVIDERS: ATTEND Internal Medicine Nephrology
DX: I12.9 Hypertensive chronic kidney disease with stage 1 through stage 4 chronic kidney disease, or unspecified chronic kidney disease (principal); N18.2 Chronic kidney disease, stage 2 (mild)
CPT/HCPCS: 36415; 80048

== ENCOUNTER 2021-09-25 18:52 | Emergency (ER) | payer OTHER ==
[~2021-09-25] VITALS: Ht 170.2 cm; Wt 74.8 kg
[2021-09-25 22:18] VITALS: BP 128/72; TEMP 98.3
== END 2021-09-25 22:18 | disposition home or self-care (01) ==
LOC: ED 18:52
DX: S09.8XXA Other specified injuries of head, initial encounter (principal); S00.81XA Abrasion of other part of head, initial encounter; S80.212A Abrasion, left knee, initial encounter; S50.312A Abrasion of left elbow, initial encounter; W10.1XXA Fall (on)(from) sidewalk curb, initial encounter; Y92.89 Other specified places as the place of occurrence of the external cause
CPT/HCPCS: 99283

== ENCOUNTER 2021-09-26 15:25 | Outpatient (CLI) | payer OTHER | END 2021-09-26 21:25 | disposition home or self-care (01) | LOC: RAD 15:25 | PROVIDERS: ATTEND Internal Medicine | DX: S90.02XD Contusion of left ankle, subsequent encounter (principal); S70.02XD Contusion of left hip, subsequent encounter; Y92.9 Unspecified place or not applicable ==

== ENCOUNTER 2021-11-19 15:45 | Outpatient (CLI) | payer OTHER | END 2021-11-19 18:55 | disposition home or self-care (01) | LOC: RAD 15:45 | PROVIDERS: ATTEND Internal Medicine | DX: R05.3 Chronic cough (principal) ==

== ENCOUNTER 2022-01-03 10:18 | Observation (INO) | payer OTHER ==
[~2022-01-03] VITALS: Ht 170.2 cm; Wt 69.4 kg
[2022-01-03 10:23] VITALS: BP 186/65; TEMP 98.7
[2022-01-03 11:49] LABS: PLATELET COUNT 222 K/uL (142-355)
[2022-01-03 11:55] LABS: POTASSIUM 4.8 mmol/L (3.6-5.2)
[2022-01-03 13:55] VITALS: BP 167/72
[2022-01-03 17:10] VITALS: BP 196/90; TEMP 97.4; Ht 170.2 cm; Wt 69.4 kg
[2022-01-03] MEDS ORDERED: CELLCEPT500 MG PO (17:44)
[2022-01-03] MEDS ORDERED: TACROLIMUS0.5 MG PO (17:45)
[2022-01-03] MEDS ORDERED: LIPITOR20 MG PO (17:48)
[2022-01-03] MEDS ORDERED: RANOLAZINE ER500 MG PO (17:50)
[2022-01-03] MEDS ORDERED: OMEP20CA PO (17:51)
[2022-01-03] MEDS ORDERED: NITR0.4S2 SL (17:53)
[2022-01-03] MEDS ORDERED: CETI10TA PO (17:54)
[2022-01-03] MEDS ORDERED: AZELASTINE HCL0.1 % NAS (17:58)
[2022-01-03] MEDS ORDERED: FLUTICASON50 MCG/ACT NAS (18:02)
[2022-01-03] MEDS ORDERED: XALATAN0.005 % OPTH (18:04)
[2022-01-03] MEDS ORDERED: BRIMONIDINE0.2 % OPTH (18:05)
[2022-01-03] MEDS ORDERED: TIMOLOL MAL0.5 % OPTH (18:06)
[2022-01-03] MEDS ORDERED: ISOS60TA6 PO (18:09)
[2022-01-03] MEDS ORDERED: PRAS10TA PO (18:12)
[2022-01-03] MEDS ORDERED: FLUC200T PO (18:15)
[2022-01-03] MEDS ORDERED: BENICAR20 MG PO (18:18)
[2022-01-03] MEDS ORDERED: ZINC50 M1 PO (18:32)
[2022-01-03] MEDS ORDERED: ALBUTEROL0.083 % INH (18:33)
[2022-01-03] MEDS ORDERED: TESSALON PER100 MG PO (18:38)
[2022-01-03] MEDS ORDERED: AMOX500C85 PO (18:41)
[2022-01-03 20:00] VITALS: BP 179/69; TEMP 98.2
== END 2022-01-03 22:45 | disposition short-term general hospital (02) ==
LOC: ED 10:18 → MED/SURG 14:45
PROVIDERS: Emergency Medicine; ADMIT Internal Medicine; ATTEND Internal Medicine
DX: R41.82 Altered mental status, unspecified (principal); Z94.83 Pancreas transplant status; Z94.0 Kidney transplant status; E78.49 Other hyperlipidemia; K21.9 Gastro-esophageal reflux disease without esophagitis; I10 Essential (primary) hypertension; H40.89 Other specified glaucoma
CPT/HCPCS: 36415; 80053; 80143; 80179; 80307; 80320; 81002; 82140; 84443; 85027; 87635; 93005; 96360; 96374; 99220; 99284; G0378; J2250; J2405; U0003

== ENCOUNTER 2022-01-09 15:51 | Observation (INO) | payer OTHER ==
[2022-01-09] VITALS (7 sets, daily range): BP systolic 101–137; BP diastolic 43–83; TEMP 97.4–98.3; Ht 170.2 cm; Wt 72.4 kg
[~2022-01-09] VITALS: Ht 170.2 cm; Wt 72.4 kg
[~2022-01-09 15:51] MED LIST changes: +ALBUTEROL0.083 % INH; +AMOX500C85 PO; +AZELASTINE HCL0.1 % NAS; +BENICAR20 MG PO; +FLUTICASON50 MCG/ACT NAS; +OMEP20CA PO; +RANOLAZINE ER500 MG PO; +TACROLIMUS0.5 MG PO; +TESSALON PER100 MG PO; +TIMOLOL MAL0.5 % OPTH; +ZINC50 M1 PO
[2022-01-09 16:33] LABS: POTASSIUM 5.4 mmol/L (3.6-5.2)
[2022-01-09 16:45] LABS: PLATELET COUNT 220 K/uL (142-355)
[2022-01-09] MEDS ORDERED: LIPITOR40 MG PO (21:19)
[2022-01-09] MEDS ORDERED: VITAMIN D2000 UNI2 PO (21:37)
[2022-01-10 00:15] VITALS: BP 126/51; TEMP 97.3
[2022-01-10 04:00] VITALS: BP 134/63; TEMP 97.9
[2022-01-10 05:15] LABS: POTASSIUM 4.4 mmol/L (3.6-5.2)
[2022-01-10 05:17] LABS: PLATELET COUNT 174 K/uL (142-355)
[2022-01-10 08:08] VITALS: BP 140/52; TEMP 97.5
[2022-01-10 11:53] VITALS: BP 147/58; TEMP 98.2
[2022-01-10 16:25] VITALS: BP 109/57; TEMP 98.1
[2022-01-10 17:16] LABS: POTASSIUM 5.1 mmol/L (3.6-5.2)
[2022-01-10 20:00] VITALS: BP 134/54; TEMP 98.6
[2022-01-11] VITALS: BP 144/57; TEMP 98.5
[2022-01-11 04:00] VITALS: BP 134/60; TEMP 98.1
[2022-01-11 04:42] LABS: PLATELET COUNT 180 K/uL (142-355)
[2022-01-11 04:52] LABS: POTASSIUM 4.9 mmol/L (3.6-5.2)
[2022-01-11 08:00] VITALS: BP 168/64; TEMP 98.2
== END 2022-01-11 10:26 | disposition home or self-care (01) ==
LOC: ED 15:51 → MED/SURG 17:30
PROVIDERS: Emergency Medicine; ADMIT Internal Medicine; ATTEND Internal Medicine
DX: N17.8 Other acute kidney failure (principal); D84.81 Immunodeficiency due to conditions classified elsewhere; R53.1 Weakness; Z94.0 Kidney transplant status; Z94.83 Pancreas transplant status; E78.49 Other hyperlipidemia; I25.10 Atherosclerotic heart disease of native coronary artery without angina pectoris; E11.42 Type 2 diabetes mellitus with diabetic polyneuropathy; Z79.4 Long term (current) use of insulin; Z79.84 Long term (current) use of oral hypoglycemic drugs; K21.9 Gastro-esophageal reflux disease without esophagitis; N40.0 Benign prostatic hyperplasia without lower urinary tract symptoms; I12.9 Hypertensive chronic kidney disease with stage 1 through stage 4 chronic kidney disease, or unspecified chronic kidney disease; E11.22 Type 2 diabetes mellitus with diabetic chronic kidney disease; E11.65 Type 2 diabetes mellitus with hyperglycemia; N18.32 Chronic kidney disease, stage 3b; E86.0 Dehydration
CPT/HCPCS: 36415; 80048; 80053; 82150; 82550; 83690; 83880; 84484; 85027; 87635; 93005; 96360; 96361; 96365; 96366; 99220; 99283; 99284; G0378; J7120; U0003

== ENCOUNTER 2022-01-15 07:52 | Outpatient (CLI) | payer OTHER ==
[~2022-01-15 07:52] MED LIST changes: +LIPITOR40 MG PO; +VITAMIN D2000 UNI2 PO
[2022-01-15 08:21] LABS: PLATELET COUNT 190 K/uL (142-355)
[2022-01-15 08:45] LABS: POTASSIUM 3.9 mmol/L (3.6-5.2)
== END 2022-01-15 19:03 | disposition home or self-care (01) ==
LOC: LABW 07:52
PROVIDERS: ATTEND Internal Medicine Cardiovascular Disease
DX: E78.49 Other hyperlipidemia (principal); I25.119 Atherosclerotic heart disease of native coronary artery with unspecified angina pectoris; Z09 Encounter for follow-up examination after completed treatment for conditions other than malignant neoplasm; I95.9 Hypotension, unspecified; D50.8 Other iron deficiency anemias; N18.2 Chronic kidney disease, stage 2 (mild); I12.9 Hypertensive chronic kidney disease with stage 1 through stage 4 chronic kidney disease, or unspecified chronic kidney disease
CPT/HCPCS: 80053; 80061; 80076; 81002; 82728; 83540; 83550; 83735; 83970; 84100; 85027

== ENCOUNTER 2022-02-25 08:50 | Outpatient (CLI) | payer OTHER ==
[2022-02-25 09:36] LABS: PLATELET COUNT 224 K/uL (142-355)
[2022-02-25 09:52] LABS: POTASSIUM 4.3 mmol/L (3.6-5.2)
== END 2022-02-25 20:29 | disposition home or self-care (01) ==
LOC: LABW 08:50
PROVIDERS: ATTEND Internal Medicine Nephrology
DX: Z94.0 Kidney transplant status (principal); Z94.83 Pancreas transplant status; Z79.899 Other long term (current) drug therapy
CPT/HCPCS: 36415; 80053; 80197; 81002; 82043; 82306; 83036; 83735; 83970; 84100; 84550; 85027

== ENCOUNTER 2022-03-06 09:10 | Outpatient (CLI) | payer OTHER | END 2022-03-06 23:08 | disposition home or self-care (01) | LOC: RAD 09:10 | PROVIDERS: ATTEND Internal Medicine | DX: J40 Bronchitis, not specified as acute or chronic (principal) ==

== ENCOUNTER 2022-03-18 09:26 | Outpatient (CLI) | payer OTHER | END 2022-03-18 19:14 | disposition home or self-care (01) | LOC: LABW 09:26 | PROVIDERS: ATTEND Internal Medicine | DX: R05.3 Chronic cough (principal) | CPT/HCPCS: 87798 ==

== ENCOUNTER 2022-03-20 07:31 | Outpatient (CLI) | payer OTHER ==
[2022-03-20 08:03] LABS: POTASSIUM 3.8 mmol/L (3.6-5.2)
[2022-03-20 08:31] LABS: PLATELET COUNT 236 K/uL (142-355)
== END 2022-03-20 19:47 | disposition home or self-care (01) ==
LOC: LABW 07:31
PROVIDERS: ATTEND Internal Medicine Nephrology
DX: Z94.0 Kidney transplant status (principal); Z94.83 Pancreas transplant status; Z79.899 Other long term (current) drug therapy; N18.9 Chronic kidney disease, unspecified; N25.89 Other disorders resulting from impaired renal tubular function
CPT/HCPCS: 36415; 80053; 80197; 81002; 82043; 82306; 83036; 83735; 83970; 84100; 84550; 85027; 87077; 87086; 87088; 87185; 87186

== ENCOUNTER 2022-04-07 09:20 | Outpatient (CLI) | payer OTHER | END 2022-04-07 19:36 | disposition home or self-care (01) | LOC: CT 09:20 | PROVIDERS: ATTEND Internal Medicine | DX: R05.3 Chronic cough (principal) ==

== ENCOUNTER 2022-04-08 13:11 | Emergency (ER) | payer OTHER ==
[~2022-04-08] VITALS: Ht 170.2 cm; Wt 73.5 kg
[2022-04-08 13:11] VITALS: TEMP 99.6
[2022-04-08 14:04] LABS: PLATELET COUNT 265 K/uL (142-355)
[2022-04-08 17:04] VITALS: BP 144/61
== END 2022-04-08 17:04 | disposition home or self-care (01) ==
LOC: ED 13:11
PROVIDERS: Emergency Medicine
DX: R07.89 Other chest pain (principal)
CPT/HCPCS: 36415; 80053; 81002; 83690; 84484; 85027; 85610; 85730; 93005; 96374; 96375; 99284; J2175; J2405; J3490

== ENCOUNTER 2022-05-31 09:29 | Outpatient (CLI) | payer OTHER ==
[2022-05-31 09:52] LABS: PLATELET COUNT 296 K/uL (142-355)
[2022-05-31 10:15] LABS: POTASSIUM 4.6 mmol/L (3.6-5.2)
== END 2022-05-31 21:43 | disposition home or self-care (01) ==
LOC: LABW 09:29
PROVIDERS: ATTEND Internal Medicine Nephrology
DX: D50.8 Other iron deficiency anemias (principal); N18.2 Chronic kidney disease, stage 2 (mild); I12.9 Hypertensive chronic kidney disease with stage 1 through stage 4 chronic kidney disease, or unspecified chronic kidney disease; Z94.0 Kidney transplant status
CPT/HCPCS: 36415; 80048; 81002; 82306; 82728; 83540; 83550; 83735; 83970; 84100; 85027

== ENCOUNTER 2022-06-09 09:50 | Outpatient (CLI) | payer OTHER | END 2022-06-09 19:01 | disposition home or self-care (01) | LOC: MRI 09:50 | PROVIDERS: ATTEND Psychiatry & Neurology Neurology | DX: R27.0 Ataxia, unspecified (principal); R53.1 Weakness ==

== ENCOUNTER 2022-06-10 07:32 | Outpatient (CLI) | payer OTHER ==
[2022-06-10 07:55] LABS: POTASSIUM 4.7 mmol/L (3.6-5.2)
== END 2022-06-10 19:17 | disposition home or self-care (01) ==
LOC: LABW 07:32
PROVIDERS: ATTEND Internal Medicine Nephrology
DX: N18.2 Chronic kidney disease, stage 2 (mild) (principal); Z94.0 Kidney transplant status; Z94.83 Pancreas transplant status; Z79.899 Other long term (current) drug therapy; N25.89 Other disorders resulting from impaired renal tubular function
CPT/HCPCS: 36415; 80048; 80197

== ENCOUNTER 2022-06-16 16:03 | Outpatient (CLI) | payer OTHER | END 2022-06-16 20:27 | disposition home or self-care (01) | LOC: RAD 16:03 | PROVIDERS: ATTEND Internal Medicine | DX: J40 Bronchitis, not specified as acute or chronic (principal) ==

== ENCOUNTER 2022-06-26 10:16 | Emergency (ER) | payer OTHER ==
[~2022-06-26] VITALS: Ht 170.2 cm; Wt 69.4 kg
[2022-06-26 10:20] VITALS: TEMP 98
[2022-06-26 11:05] LABS: POTASSIUM 3.9 mmol/L (3.6-5.2)
[2022-06-26 11:07] LABS: PLATELET COUNT 344 K/uL (142-355)
[2022-06-26 11:10] LABS: PARTIAL THROMBOPLASTIN TIME 24.7 SECONDS (24.5-33.6)
[2022-06-26 15:25] VITALS: BP 146/58
== END 2022-06-26 17:55 | disposition home or self-care (01) ==
LOC: ED 10:16
PROVIDERS: Emergency Medicine
DX: J40 Bronchitis, not specified as acute or chronic (principal); N18.6 End stage renal disease; Z94.0 Kidney transplant status; R42 Dizziness and giddiness; Z98.890 Other specified postprocedural states; Z77.22 Contact with and (suspected) exposure to environmental tobacco smoke (acute) (chronic)
CPT/HCPCS: 80053; 81002; 83880; 84484; 85027; 85610; 85730; 87040; 87502; 93005; 94664; 96372; 99283; J2920

== ENCOUNTER 2022-07-31 08:05 | Outpatient (CLI) | payer OTHER ==
[2022-07-31 08:42] LABS: PLATELET COUNT 282 K/uL (142-355); POTASSIUM 4.6 mmol/L (3.6-5.2)
== END 2022-07-31 20:52 | disposition home or self-care (01) ==
LOC: LABW 08:05
PROVIDERS: ATTEND Internal Medicine Nephrology
DX: Z94.0 Kidney transplant status (principal); Z94.83 Pancreas transplant status; Z79.899 Other long term (current) drug therapy; N18.6 End stage renal disease; N25.89 Other disorders resulting from impaired renal tubular function
CPT/HCPCS: 36415; 80053; 80061; 80197; 81002; 82150; 82306; 82465; 83036; 83690; 83735; 83970; 84100; 85027; 87086; 87088

== ENCOUNTER 2022-08-01 07:37 | Outpatient (CLI) | payer OTHER | END 2022-08-01 20:34 | disposition home or self-care (01) | LOC: CT 07:37 | PROVIDERS: ATTEND Nurse Practitioner Family | DX: J30.2 Other seasonal allergic rhinitis (principal) ==

== ENCOUNTER 2022-08-13 06:59 | Emergency (ER) | payer OTHER ==
[~2022-08-13] VITALS: Ht 170.2 cm; Wt 65.8 kg
[2022-08-13 07:47] LABS: PLATELET COUNT 226 K/uL (142-355)
[2022-08-13 08:05] LABS: POTASSIUM 4.8 mmol/L (3.6-5.2)
[2022-08-13 08:55] VITALS: BP 128/72; TEMP 98
== END 2022-08-13 08:55 | disposition home or self-care (01) ==
LOC: ED 06:59
PROVIDERS: Emergency Medicine
DX: J18.9 Pneumonia, unspecified organism (principal); Z94.83 Pancreas transplant status; Z94.0 Kidney transplant status; Z20.822 Contact with and (suspected) exposure to COVID-19
CPT/HCPCS: 80053; 82550; 83880; 84484; 85027; 87502; 87635; 93005; 94664; 96365; 99284; J0696; U0003

== ENCOUNTER 2022-09-26 10:53 | Outpatient (CLI) | payer OTHER | END 2022-09-26 19:22 | disposition home or self-care (01) | LOC: LABW 10:53 | PROVIDERS: ATTEND Internal Medicine Cardiovascular Disease | DX: E78.00 Pure hypercholesterolemia, unspecified (principal) | CPT/HCPCS: 36415; 80061; 80076 ==

== ENCOUNTER 2022-10-11 11:15 | Outpatient (CLI) | payer OTHER ==
[2022-10-11 11:57] LABS: PLATELET COUNT 264 K/uL (142-355)
[2022-10-11 12:33] LABS: POTASSIUM 4.8 mmol/L (3.6-5.2)
== END 2022-10-11 19:29 | disposition home or self-care (01) ==
LOC: LABW 11:15
PROVIDERS: ATTEND Internal Medicine Nephrology
DX: I12.9 Hypertensive chronic kidney disease with stage 1 through stage 4 chronic kidney disease, or unspecified chronic kidney disease (principal); N18.2 Chronic kidney disease, stage 2 (mild); D63.1 Anemia in chronic kidney disease; Z94.0 Kidney transplant status; E55.9 Vitamin D deficiency, unspecified
CPT/HCPCS: 36415; 80048; 81002; 83735; 84100; 85027

== ENCOUNTER 2022-10-24 09:12 | Outpatient (CLI) | payer OTHER ==
[2022-10-24 12:45] LABS: PLATELET COUNT 274 K/uL (142-355)
== END 2022-10-24 18:53 | disposition home or self-care (01) ==
LOC: LABW 09:12
PROVIDERS: ATTEND Internal Medicine
DX: R31.9 Hematuria, unspecified (principal); N41.0 Acute prostatitis
CPT/HCPCS: 36415; 84153; 85027

== ENCOUNTER 2023-01-26 11:33 | Outpatient (CLI) | payer OTHER | END 2023-01-26 21:25 | disposition home or self-care (01) | LOC: RAD 11:33 | PROVIDERS: ATTEND Internal Medicine | DX: M51.36 Other intervertebral disc degeneration, lumbar region (principal) ==